=== PATIENT | female | born 1960 | race Caucasian/White ===

== ENCOUNTER 2019-03-02 17:19 | Emergency (ER) | payer BC ==
[~2019-03-02] VITALS: Ht 170.2 cm; Wt 59.9 kg
--- NOTE | 2019-03-02 17:48 | PHYS DOC ---
Past History Past Medical History: High Cholesterol, Hypothyroid (JENNA VALLEJO DO) Past Surgical History: Other Additional Past Surgical Histo: thyroid surgery (JENNA VALLEJO DO) Smoking: Non-smoker Alcohol Use: None Drug Use: None (JENNA VALLEJO DO) Adult General Chief Complaint Chief Complaint: DIZZY/LIGHT HEADED HPI HPI Patient is a 58-year-old female presents with dizziness that she describes as a lightheaded sensation. No rotational component. No worsening with head position nor change in body position. There has been some nausea without vomiting today. She also notes that there has been a rushing sensation in her left ear. This started after a yoga move 2 weeks ago. It has been waxing and waning over the past 2 weeks with symptoms being essentially gone yesterday, coming back worse again since 11:00 today. Over this same time frame she has been having a waxing and waiting headache also on the left side. No change in vision. No photophobia or phonophobia. She does get relief with ibuprofen. She has not seen any other health care provider for these symptoms at this time.[] (JENNA VALLEJO DO) Review of Systems Review of Systems Constitutional: Denies fever or chills [] Eyes: Denies change in visual acuity, redness, or eye pain [] HENT: Denies nasal congestion or sore throat [] Respiratory: Denies cough or shortness of breath [] Cardiovascular: No chest pain or palpitations[] GI: Denies abdominal pain, nausea, vomiting, bloody stools or diarrhea [] : Denies dysuria or hematuria [] Musculoskeletal: Denies back pain or joint pain [] Integument: Denies rash or skin lesions [] Neurologic: See history of present illness[] Endocrine: Denies polyuria or polydipsia [] All other systems were reviewed and found to be within normal limits, except as documented in this note. (JENNA VALLEJO DO) Allergies Allergies Allergies Coded Allergies Type Severity Reaction Last Updated Verified No Known Drug Allergies 03/02/19 No (JENNA VALLEJO DO) Physical Exam Physical Exam Constitutional: Well developed, well nourished, no acute distress, non-toxic appearance. [] HENT: Normocephalic, atraumatic, bilateral external ears normal, TMs are clear, no blood or fluid behind the TM, oropharynx moist, no oral exudates, nose normal. [] Eyes: PERRLA, EOMI, conjunctiva normal, no discharge. [] Neck: Normal range of motion, tenderness of the left cervical paraspinal musculature which re-creates some of her headache discomfort. No meningismus, no cervical lymphadenopathy, supple, no stridor. [] Cardiovascular:Heart rate regular rhythm, no murmur [] Lungs & Thorax: Bilateral breath sounds clear to auscultation [] Abdomen: Bowel sounds normal, soft, no tenderness, no masses, no pulsatile masses. [] Skin: Warm, dry, no erythema, no rash. [] Back: No tenderness, no CVA tenderness. [] Extremities: No tenderness, no cyanosis, no clubbing, ROM intact, no edema. [] Neurologic: Alert and oriented X 3, normal motor function, normal sensory function, no focal deficits noted. Normal rapid repetitive and alternating movements.[] Psychologic: Affect normal, judgement normal, mood normal. [] (JENNA VALLEJO DO) Physical Exam Some lateralization to Lt with BC 128, AC decreased on lt. . ( Hx Mnire's and decreased hearing in left ear- chronic) Distal vibratory present and relatively equal in hand s and feet. (NAIMA QUINTANILLA MD) EKG EKG [] (JENNA VALLEJO DO) EKG I interpretation of EKG shows a sinus rhythm at 63 bpm. There is some nonspecific contour abnormalities anterior septal areas. But no findings acute STEMI with contralateral changes. (NAIMA QUINTANILLA MD) Radiology/Procedures Radiology/Procedures [] (JENNA VALLEJO DO) Radiology/Procedures [address] [address] IMAGING REPORT Signed PATIENT: MARIAN VELÁSQUEZ ACCOUNT: [id number] : 1960 LOCATION: ER AGE: 58 SEX: F EXAM STATUS: REG ER ORD. PHYSICIAN: JENNA VALLEJO DO REASON: dizziness, headache PROCEDURE: CT HEAD WO CONTRAST PQRS Compliance statement: One or more of the following individualized dose reduction techniques were utilized for this examination: 1. Automated exposure control. 2. Adjustment of the mA and/or kV according to patient size. 3. Use of iterative reconstruction technique. Indication:Dizziness. Headache. TECHNIQUE: CT head without IV contrast COMPARISON: 04/15/2008 FINDINGS: No pathologic extra-axial or intra-axial fluid collection. Mild supratentorial atrophy. The ventricles and basal cisterns are within normal limits. No acute intracranial bleed. No focal loss of connor-white differentiation. Orbits are within normal limits. No suspicious calvarial lesion. Visualized paranasal sinuses and mastoid air cells are clear. IMPRESSION: No acute intracranial processes noncontrast CT. If concern for acute ischemic stroke is high, please consider MRI brain. Electronically signed by: Danny Grier DO (03/02/2019 6:03 PM) [facility] DICTATED AND SIGNED BY: DANNY GRIER DO DATE: 03/02/19 694 CC: JENNA VALLEJO DO; KEVIN IRAHETA MD ~ [place] [address] IMAGING REPORT Signed PATIENT: MARIAN VELÁSQUEZ ACCOUNT: [id number] : 1960 LOCATION: ER AGE: 58 SEX: F EXAM STATUS: REG ER ORD. PHYSICIAN: JENNA VALLEJO DO REASON: dizziness PROCEDURE: PORTABLE CHEST 1V Indication: Dizziness TECHNIQUE: Single AP view chest COMPARISON: None FINDINGS: Heart is normal in size. Lungs are hyperinflated with interstitial opacities. No pneumothorax or pleural effusion. Visualized bony thorax is within normal limits. IMPRESSION: COPD. Superimposed atypical/viral infection not ruled out. Electronically signed by: Danny Grier DO (03/02/2019 6:50 PM) [facility] DICTATED AND SIGNED BY: DANNY GRIER DO DATE: 03/02/19 952 CC: JENNA VALLEJO DO; NAIMA QUINTANILLA MD; KEVIN IRAHETA MD ~ (NAIMA QUINTANILLA MD) Course & Med Decision Making Course & Med Decision Making Pertinent Labs and Imaging studies reviewed. (See chart for details) ED course: Patient arrived, was placed in bed, and tolerated exam well. Patient care was endorsed to the nighttime physician at 1800 with laboratory and imaging studies as well as management of the symptoms in process.[] (JENNA VALLEJO DO) Course & Med Decision Making Pt. declines admission. Wants to go home and find her cat ' Vitaly' lost in the house... Pt. symptoms consistent with Lt. ear vestibular (Semicircular canal/otoliths issues). Exacerbation with rapid changes in position- supine to sitting, turning head ect. Gait issues. No drift, occupational rehabilitation aide equal, DTR + 2 pa tellar and brachial, distal vib. intact. . Hx prior Meniere's episodes. Pt. currently has stopped her calcium supplements, but taking magnesium supplements. Discussed risks and other etiologies with pt. CVA, TIA, Labyrinthitis, Neuronitis, dehydration, electrolytes ect. Consider Neurology consult. carotid US and MRI. Impression: 1. Dizzy- Vertigo- 2. Hypocalcemia 7.1 3. Hx. Meniere's 4. Hx. COPD- recently stopped tobacco (NAIMA QUINTANILLA MD) Dragon Disclaimer Dragon Disclaimer This electronic medical record was generated, in whole or in part, using a voice recognition dictation system. (JENNA VALLEJO DO) Departure Departure: Referrals: KEVIN IRAHETA MD (PCP) Scripts Prednisone (PREDNISONE) 50 Mg Tablet 50 MG PO DAILY for inflammation for 5 Days, #5 TAB Prov: NAIMA QUINTANILLA MD 03/02/19 Meclizine Hcl (MECLIZINE HCL) 25 Mg Tablet 25 MG PO QIDPRN PRN for dizzy, #30 TAB Prov: NAIMA QUINTANILLA MD 03/02/19 Discharge Summary Visit Information Final Diagnosis Problems Medical Problems: (1) Dizzy Status: Acute (2) Meniere syndrome Status: Acute (NAIMA QUINTANILLA MD) Brief Hospital Course Allergies Allergies Coded Allergies Type Severity Reaction Last Updated Verified No Known Drug Allergies 03/02/19 No Vital Signs Vital Signs Date Time Temp Pulse Resp B/P (MAP) Pulse Ox O2 Delivery O2 Flow Rate FiO2 03/02/19 19:51 67 20 135/80 (98) 97 Room Air 03/02/19 17:20 97.9 Lab Results Laboratory Tests Test 03/02/19 18:05 03/02/19 18:44 03/02/19 19:20 White Blood Count 8.1 x10^3/uL (4.0-11.0) Red Blood Count 4.28 x10^6/uL (3.50-5.40) Hemoglobin 13.2 g/dL (12.0-15.5) Hematocrit 39.8 % (36.0-47.0) Mean Corpuscular Volume 93 fL (79-100) Mean Corpuscular Hemoglobin 31 pg (25-35) Mean Corpuscular Hemoglobin Concent 33 g/dL (31-37) Red Cell Distribution Width 13.2 % (11.5-14.5) Platelet Count 294 x10^3/uL (140-400) Neutrophils (%) (Auto) 52 % (31-73) Lymphocytes (%) (Auto) 38 % (24-48) Monocytes (%) (Auto) 5 % (0-9) Eosinophils (%) (Auto) 4 % (0-3) Basophils (%) (Auto) 1 % (0-3) Neutrophils # (Auto) 4.2 x10^3uL (1.8-7.7) Lymphocytes # (Auto) 3.0 x10^3/uL (1.0-4.8) Monocytes # (Auto) 0.4 x10^3/uL (0.0-1.1) Eosinophils # (Auto) 0.3 x10^3/uL (0.0-0.7) Basophils # (Auto) 0.1 x10^3/uL (0.0-0.2) Troponin I Quantitative < 0.017 ng/mL (0-0.055) Prothrombin Time 10.2 SEC (9.4-11.4) Prothromb Time International Ratio 1.0 (0.9-1.1) Sodium Level 143 mmol/L (136-145) Potassium Level 3.6 mmol/L (3.5-5.1) Chloride Level 110 mmol/L (98-107) Carbon Dioxide Level 22 mmol/L (21-32) Anion Gap 11 (6-14) Blood Urea Nitrogen 15 mg/dL (7-20) Creatinine 0.6 mg/dL (0.6-1.0) Estimated GFR (Cockcroft-Gault) 102.3 BUN/Creatinine Ratio 25 (6-20) Glucose Level 117 mg/dL (70-99) Calcium Level 7.1 mg/dL (8.5-10.1) Total Bilirubin 0.5 mg/dL (0.2-1.0) Aspartate Amino Transf (AST/SGOT) 18 U/L (15-37) Alanine Aminotransferase (ALT/SGPT) 22 U/L (14-59) Alkaline Phosphatase 49 U/L (46-116) Total Protein 6.0 g/dL (6.4-8.2) Albumin 3.2 g/dL (3.4-5.0) Albumin/Globulin Ratio 1.1 (1.0-1.7) Magnesium Level 2.2 mg/dL (1.8-2.4) Brief Hospital Course Ms. Velásquez is a 58 old female who presented with complaints of vertigo. Declines admission. (NAIMA QUINTANILLA MD) Discharge Information Condition at Discharge: Stable Disposition/Orders: D/C to Home Dischare Medications Current Medications Sodium Chloride 1,000 ml @ 1,000 mls/hr 1X ONCE IV Last administered on 03/02/19at 18:12; Start 03/02/19 at 18:00; Stop 03/02/19 at 18:59; Status DC Metoclopramide HCl (Reglan Vial) 10 mg 1X ONCE IV Last administered on 03/02/19at 18:14; Start 03/02/19 at 18:00; Stop 03/02/19 at 18:01; Status DC Ketorolac Tromethamine (Toradol 15mg Vial) 15 mg 1X ONCE IV Last administered on 03/02/19at 18:15; Start 03/02/19 at 18:00; Stop 03/02/19 at 18:01; Status DC Prednisone (Prednisone) 50 mg 1X ONCE PO Last administered on 03/02/19at 21:08; Start 03/02/19 at 21:00; Stop 03/02/19 at 21:01; Status DC Active Scripts Active Prednisone 50 Mg Tablet 50 Mg PO DAILY 5 Days Meclizine Hcl 25 Mg Tablet 25 Mg PO QIDPRN PRN (NAIMA QUINTANILLA MD) Dragon Disclaimer This chart was dictated in whole or in part using Voice Recognition software in a busy, high-work load, and often noisy Emergency Department environment. It may contain unintended and wholly unrecognized errors or omissions. (NAIMA QUINTANILLA MD) JENNA VALLEJO DO Mar 02, 2019 17:48 NAIMA QUINTANILLA MD Mar 02, 2019 18:18
[2019-03-02] MEDS ORDERED: METOCLOPRAMIDE HCL 10 MG/2 ML VIAL. IV ONE (18:00)
[2019-03-02] MEDS ORDERED: IV NORMAL SALINE 1,000ML 1,000 ML IV ONE (18:00)
[2019-03-02] MEDS ORDERED: KETOROLAC 15 MG/ML VIAL. IV ONE (18:00)
--- NOTE | 2019-03-02 18:01 | EKG ---
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
--- NOTE | 2019-03-02 18:06 | RAD ---
PQRS Compliance statement: One or more of the following individualized dose reduction techniques were utilized for this examination: 1. Automated exposure control. 2. Adjustment of the mA and/or kV according to patient size. 3. Use of iterative reconstruction technique. Indication:Dizziness. Headache. TECHNIQUE: CT head without IV contrast COMPARISON: 04/15/2008 FINDINGS: No pathologic extra-axial or intra-axial fluid collection. Mild supratentorial atrophy. The ventricles and basal cisterns are within normal limits. No acute intracranial bleed. No focal loss of connor-white differentiation. Orbits are within normal limits. No suspicious calvarial lesion. Visualized paranasal sinuses and mastoid air cells are clear. IMPRESSION: No acute intracranial processes noncontrast CT. If concern for acute ischemic stroke is high, please consider MRI brain. Electronically signed by: Danny Grier DO (03/02/2019 6:03 PM) [facility]
[2019-03-02 18:36] LABS: BASO # 0.1 x10^3/uL (0.0-0.2); BASO % 1 % (0-3); EOS # 0.3 x10^3/uL (0.0-0.7); EOS % 4 % (0-3); HEMATOCRIT 39.8 % (36.0-47.0); HEMOGLOBIN 13.2 g/dL (12.0-15.5); LYMPH % 38 % (24-48); MEAN CORPUSCULAR HEMOGLOBIN 31 pg (25-35); MEAN CORPUSCULAR HGB CONC 33 g/dL (31-37); MEAN CORPUSCULAR VOLUME 93 fL (79-100); MONO # 0.4 x10^3/uL (0.0-1.1); MONO % 5 % (0-9); NEUT # 4.2 x10^3uL (1.8-7.7); NEUT % 52 % (31-73); PLATELET COUNT 294 x10^3/uL (140-400); RED BLOOD COUNT 4.28 x10^6/uL (3.50-5.40); RED CELL DISTRIBUTION WIDTH 13.2 % (11.5-14.5); WHITE BLOOD COUNT 8.1 x10^3/uL (4.0-11.0)
--- NOTE | 2019-03-02 18:53 | RAD ---
Indication: Dizziness TECHNIQUE: Single AP view chest COMPARISON: None FINDINGS: Heart is normal in size. Lungs are hyperinflated with interstitial opacities. No pneumothorax or pleural effusion. Visualized bony thorax is within normal limits. IMPRESSION: COPD. Superimposed atypical/viral infection not ruled out. Electronically signed by: Danny Grier DO (03/02/2019 6:50 PM) [facility]
[2019-03-02 19:20] LABS: ALBUMIN 3.2 g/dL (3.4-5.0); ALBUMIN/GLOBULIN RATIO 1.1 (1.0-1.7); CALCIUM 7.1 mg/dL (8.5-10.1); CREATININE 0.6 mg/dL (0.6-1.0); GFR 102.3; POTASSIUM 3.6 mmol/L (3.5-5.1); TOTAL BILIRUBIN 0.5 mg/dL (0.2-1.0)
[2019-03-02 19:51] VITALS: BP 135/80
[2019-03-02] MEDS ORDERED: MECL25TA3 PO (20:43)
[2019-03-02] MEDS ORDERED: PRED50TA PO (20:45)
[2019-03-02] MEDS ORDERED: predniSONE 10 MG TABLET PO ONE (21:00)
== END 2019-03-02 21:19 | disposition home or self-care (01) ==
LOC: ER 17:19
DX: R42 Dizziness and giddiness (principal); E83.51 Hypocalcemia; R51 Headache; H81.02 Meniere's disease, left ear; J44.9 Chronic obstructive pulmonary disease, unspecified; E78.00 Pure hypercholesterolemia, unspecified; E03.9 Hypothyroidism, unspecified; Z87.891 Personal history of nicotine dependence
CPT/HCPCS: 36415; 70450; 71045; 80053; 83735; 84484; 85025; 85610; 93005; 96361; 96374; 96375; 99285; J1885; J2765; J7512; J7030

== ENCOUNTER 2020-01-31 16:38 | Emergency (ER) | payer BC ==
[~2020-01-31] VITALS: Ht 170.2 cm; Wt 62.3 kg
[~2020-01-31 16:38] MED LIST: MECL-75 PO; PRED50TA PO
[2020-01-31] MEDS ORDERED: ONDANSETRON PF 4 MG/2 ML VIAL. IVP ONE (17:15)
[2020-01-31] MEDS ORDERED: diphenhydrAMINE 50 MG/ML VIAL IVP ONE (17:15)
[2020-01-31] MEDS ORDERED: IV NORMAL SALINE 1,000ML 1,000 ML IV ONE (17:15)
[2020-01-31] MEDS ORDERED: MECLIZINE 12.5 MG TABLET. PO PRN (17:15)
--- NOTE | 2020-01-31 17:21 | PHYS DOC ---
Past History Past Medical History: High Cholesterol, Hypothyroid (MILES LUNA DO) Past Medical History: UTI (NAIMA DUFF MD) Past Surgical History: Other Additional Past Surgical Histo: thyroid surgery (MILES LUNA DO) Smoking: Non-smoker Alcohol Use: None Drug Use: None (MILES LUNA DO) General Adult EDM: Chief Complaint: NAUSEA/VOMITING/DIARRHEA HPI: HPI: 59-year-old female presents with dizziness and nausea. Patient has Mnire's disease. She has been feeling dizzy and nauseous all day. She does not regularly take medication for this. She admits to some seasonal allergies and frequent congestion. She further complains about right tibia pain. She denies trauma, but it has been hurting more the last 2 days. She has a history of osteoporosis and is concerned. She denies fever or chills. (MILES LUNA DO) Review of Systems: Review of Systems: Constitutional: Denies fever or chills Eyes: Denies change in visual acuity HENT: Denies nasal congestion or sore throat Respiratory: Denies cough or shortness of breath Cardiovascular: Denies chest pain or edema GI: nausea, vomiting : Denies dysuria Musculoskeletal: Right anterior tibial pain Integument: Denies rash Neurologic: Dizziness. Denies headache, focal weakness or sensory changes Endocrine: Denies polyuria or polydipsia Lymphatic: Denies swollen glands Psychiatric: Denies depression or anxiety (MILES LUNA DO) Heart Score: Risk Factors: Risk Factors: DM, Current or recent (<one month) smoker, HTN, HLP, family history of CAD, obesity. Risk Scores: Score 0 - 3: 2.5% MACE over next 6 weeks - Discharge Home Score 4 - 6: 20.3% MACE over next 6 weeks - Admit for Clinical Observation Score 7 - 10: 72.7% MACE over next 6 weeks - Early Invasive Strategies (MILES LUNA DO) Current Medications: Current Meds: Current Medications Medications (Trade) Dose Ordered Sig/Marta Start Time Stop Time Status Last Admin Dose Admin Diphenhydramine HCl (Benadryl) 25 mg 1X ONCE 01/31/20 17:15 01/31/20 17:16 UNV Meclizine HCl (Antivert) 12.5 mg 1X PRN 01/31/20 17:15 UNV Ondansetron HCl (Zofran) 4 mg 1X ONCE 01/31/20 17:15 01/31/20 17:16 DC Sodium Chloride 1,000 ml @ 1,000 mls/hr 1X ONCE 01/31/20 17:15 01/31/20 18:14 (MILES LUNA DO) Allergies: Allergies: Allergies Coded Allergies Type Severity Reaction Last Updated Verified No Known Drug Allergies 03/02/19 No (MILES LUNA DO) Physical Exam: PE: Constitutional: Well developed, well nourished, no acute distress, non-toxic appearance. [] HENT: Normocephalic, atraumatic, bilateral external ears normal, oropharynx moist, no oral exudates, nose normal. [] Eyes: PERRLA, EOMI, conjunctiva normal, no discharge. [] Neck: Normal range of motion, no tenderness, supple, no stridor. [] Cardiovascular: Heart rate regular rhythm, no murmur [] Lungs & Thorax: Bilateral breath sounds clear to auscultation [] Abdomen: Bowel sounds normal, soft, no tenderness, no masses, no pulsatile masses. [] Skin: Warm, dry, no erythema, no rash. [] Back: No tenderness, no CVA tenderness. [] Extremities: Tenderness of the right distal tibia [] Neurologic: Alert and oriented X 3, normal motor function, normal sensory function, no focal deficits noted. [] Psychologic: Affect normal, judgement normal, mood normal. [] (MILES LUNA DO) EKG: EKG: [] (MILES LUNA DO) Radiology/Procedures: Radiology/Procedures: [] (MILES LUNA DO) Radiology/Procedures: [address] [address] IMAGING REPORT Signed PATIENT: MARIAN REYES ACCOUNT: [id number] : 1960 LOCATION: ER AGE: 59 SEX: F EXAM STATUS: REG ER ORD. PHYSICIAN: MILES LUNA DO REASON: pain, osteoporosis PROCEDURE: TIBIA FIBULA RIGHT EXAM: Right tibia and fibula, 2 views. HISTORY: Pain. Osteoporosis. COMPARISON: None. FINDINGS: 2 views of the right tibia and fibula are obtained. There is no fracture, dislocation or subluxation. There is no lytic or sclerotic osseous lesion. There is no periosteal reaction. There is enthesopathy along the superior patella. There is trace knee joint fluid. There are vascular and soft tissue calcifications. IMPRESSION: No acute osseous finding. Electronically signed by: Acacia Ruth MD (01/31/2020 5:52 PM) [facility] DICTATED AND SIGNED BY: ACACIA RUTH MD DATE: 01/31/201751 CC: MILES LUNA DO; ACACIA BARRAZA MD ~ (NAIMA DUFF MD) Course & Med Decision Making: Course & Med Decision Making Pertinent Labs and Imaging studies reviewed. (See chart for details) The patient's work-up is pending. I have ordered 1 L normal saline, 4 mg of Zofran, 12-1/2 mg of meclizine. I am signing the patient out to Dr. Duff at 1800. [] (MILES LUNA DO) Course & Med Decision Making See Dr. Luna chart for details. Pt.requesting discharge. Pt. to follow up urine cultures. Take Levaquin 500 daily x 5 days. Return if any concerns. Impression; 1. Nausea 2. UTI (NAIMA DUFF MD) Dragon Disclaimer: Dragon Disclaimer: This electronic medical record was generated, in whole or in part, using a voice recognition dictation system. (MILES LUNA DO) Departure Departure: Disposition: 01 HOME/RESIDENCE PRIOR TO ADM Condition: STABLE Referrals: ACACIA BARRAZA MD (PCP) Scripts Levofloxacin (LEVAQUIN) 500 Mg Tablet 500 MG PO DAILY for UTI for 5 Days, #5 TAB Prov: NAIMA DUFF MD 01/31/20 Ondansetron Hcl (ZOFRAN) 8 Mg Tablet 8 MG PO QIDPRN PRN for nv, #30 BOTTLE Prov: NAIMA DUFF MD 01/31/20 Justification of Admission: Justification of Admission: Justification of Admission Dx: N/A (MILES LUNA DO) Justification of Admission Dx: N/A (NAIMA DUFF MD) Dragon Disclaimer This chart was dictated in whole or in part using Voice Recognition software in a busy, high-work load, and often noisy Emergency Department environment. It may contain unintended and wholly unrecognized errors or omissions. (NAIMA DUFF MD) Dragon Disclaimer This chart was dictated in whole or in part using Voice Recognition software in a busy, high-work load, and often noisy Emergency Department environment. It may contain unintended and wholly unrecognized errors or omissions. (NAIMA DUFF MD) IMLES LUNA DO Jan 31, 2020 17:21 NAIMA DUFF MD Jan 31, 2020 18:16
--- NOTE | 2020-01-31 17:55 | RAD ---
EXAM: Right tibia and fibula, 2 views. HISTORY: Pain. Osteoporosis. COMPARISON: None. FINDINGS: 2 views of the right tibia and fibula are obtained. There is no fracture, dislocation or subluxation. There is no lytic or sclerotic osseous lesion. There is no periosteal reaction. There is enthesopathy along the superior patella. There is trace knee joint fluid. There are vascular and soft tissue calcifications. IMPRESSION: No acute osseous finding. Electronically signed by: Acacia Lama MD (01/31/2020 5:52 PM) [facility]
[2020-01-31 18:07] LABS: BASO # 0.1 x10^3/uL (0.0-0.2); BASO % 1 % (0-3); EOS % 0 % (0-3); HEMOGLOBIN 12.5 g/dL (12.0-15.5); LYMPH # 1.7 x10^3/uL (1.0-4.8); LYMPH % 21 % (24-48); MEAN CORPUSCULAR HEMOGLOBIN 30 pg (25-35); MEAN CORPUSCULAR HGB CONC 34 g/dL (31-37); MEAN CORPUSCULAR VOLUME 90 fL (79-100); MONO # 0.3 x10^3/uL (0.0-1.1); MONO % 3 % (0-9); NEUT # 5.8 x10^3uL (1.8-7.7); NEUT % 74 % (31-73); PLATELET COUNT 322 x10^3/uL (140-400); RED CELL DISTRIBUTION WIDTH 13.3 % (11.5-14.5); WHITE BLOOD COUNT 7.8 x10^3/uL (4.0-11.0)
[2020-01-31 18:21] LABS: CALCIUM 7.6 mg/dL (8.5-10.1); CREATININE 0.9 mg/dL (0.6-1.0); GFR 63.9; POTASSIUM 3.6 mmol/L (3.5-5.1)
[2020-01-31 18:25] LABS: ALBUMIN 3.7 g/dL (3.4-5.0); ALBUMIN/GLOBULIN RATIO 1.1 (1.0-1.7); TOTAL BILIRUBIN 0.8 mg/dL (0.2-1.0)
[2020-01-31 19:38] LABS: BACTERIA,URINE MANY /HPF (0-FEW); BILIRUBIN,URINE NEG (NEG); CLARITY,URINE CLOUDY; COLOR,URINE YELLOW; GLUCOSE,URINE NEG (NEG); NITRITE,URINE POS (NEG); RBC,URINE OCC /HPF (0-2); SQUAMOUS EPITHELIAL CELL,UR FEW /LPF; UROBILINOGEN,URINE 0.2 mg/dL (0.2 mg/dL); WBC,URINE >40 /HPF (0-4)
[2020-01-31] MEDS ORDERED: MORPHINE SULFATE 10 MG/ML SYRINGE. ONE (20:12)
[2020-01-31 20:27] VITALS: BP 125/72
[2020-01-31] MEDS ORDERED: LEVO500T59 PO (21:41)
[2020-01-31] MEDS ORDERED: ONDA8TAB9 PO (21:41)
[2020-01-31] MEDS ORDERED: levoFLOXacin 500 MG TABLET PO ONE (22:00)
== END 2020-01-31 22:00 | disposition home or self-care (01) ==
LOC: ER 16:38
DX: N39.0 Urinary tract infection, site not specified (principal); R11.2 Nausea with vomiting, unspecified; E78.00 Pure hypercholesterolemia, unspecified; M79.604 Pain in right leg; E03.9 Hypothyroidism, unspecified; Z87.440 Personal history of urinary (tract) infections
CPT/HCPCS: 36415; 73590; 80053; 81001; 85025; 87086; 96374; 96375; 99284; J1200; J2405; J8597

== ENCOUNTER → 2020-03-10 | Outpatient (CLI) | payer BC ==
[~2020-03-10] MED LIST changes: +ASCO500C9 PO; +ASPI81TA59 PO; +ATORVASTATIN CA80 MG PO; +CALC500T30 PO; +LEVO100T82 PO; +LEVO500T59 PO; +MULT-245 PO; +ONDA8TAB9 PO; +TIOT4MIS3 IH
== END | disposition home or self-care (01) ==
LOC: LAB 13:28
PROVIDERS: ATTEND Nurse Anesthetist, Certified Registered
DX: Z01.818 Encounter for other preprocedural examination (principal); Z11.59 Encounter for screening for other viral diseases
CPT/HCPCS: C9803; U0003; 36415

== ENCOUNTER → 2020-03-13 | Day surgery (SDC) | payer BC ==
[~2020-03-13] MED LIST changes: +IPRATRPIUM/ALBUTEROL 0.5/2.5MG 3 ML NEBU. NEB PRN; +IV RINGERS SOLUTION,LACTATED 1,000 ML IV SCH; +MIDAZOLAM HCL PF 2 MG/2 ML VIAL. IV ONE; +PROPOFOL 10,000 MCG/ML (20ML) VIAL IV ONE
[2020-03-13 13:03] VITALS: BP 112/75
--- NOTE | 2020-03-17 17:07 | PATHOLOGY ---
[facility] Accession Number: [id number] . 01 Material submitted: . stomach - BIOPSY ANTRUM - GASTRITIS . 01 Clinical history: . Family history of cancer; abdominal pain; GERD; history of polyps . 02 Diagnosis: Gastric biopsies, antrum: - Chronic gastritis, mild. . (M:mm; 03/17/2020) [facility] 03/17/2020 1405 Local . 02 Comment: Sections of the gastric biopsy reveal segments of gastric antral and antral/body transition mucosa showing congestion and mild chronic inflammation with scattered admixed small numbers of eosinophils. A properly-controlled immunoperoxidase stain for Helicobacter is negative for Helicobacter organisms. . Special stain (A1): Immunoperoxidase stain for Helicobacter pylori . (JPM:mm; 03/17/2020) . 02 Electronically signed: . Wagner Moon MD, Pathologist NPI- [id number] . 01 Gross description: . The specimen is received in formalin, labeled "Ada Brown, biopsy antrum gastritis". Received are two segments of pale payne soft tissue ranging in size from 0.4 to 0.5 cm in maximum dimensions. The specimen is submitted entirely in cassette A1. (CAA; 03/16/2020) [facility] 03/16/2020 1652 Local . 02 Pathologist provided ICD-10: K29.50 . 02 CPT . 129895, [id number] Specimen Comment: A courtesy copy of this report has been sent to [phone], [phone] Specimen Comment: [phone] Specimen Comment: Report sent to / DR BARRAZA Performed at: [address], [place], [place] [id number] MD Mele Nash MD Phone: [phone] Performed at: [address] [id number] MD Wagner Moon MD Phone: [phone]
== END | disposition home or self-care (01) ==
LOC: SURG 10:28
PROVIDERS: ATTEND Internal Medicine Gastroenterology
DX: Z12.11 Encounter for screening for malignant neoplasm of colon (principal); K64.0 First degree hemorrhoids; K57.30 Diverticulosis of large intestine without perforation or abscess without bleeding; K21.0 Gastro-esophageal reflux disease with esophagitis; K44.9 Diaphragmatic hernia without obstruction or gangrene; K29.50 Unspecified chronic gastritis without bleeding; M19.90 Unspecified osteoarthritis, unspecified site; E78.00 Pure hypercholesterolemia, unspecified; J44.9 Chronic obstructive pulmonary disease, unspecified; E03.9 Hypothyroidism, unspecified; G62.9 Polyneuropathy, unspecified; Z79.82 Long term (current) use of aspirin; Z79.899 Other long term (current) drug therapy; Z87.440 Personal history of urinary (tract) infections; Z90.710 Acquired absence of both cervix and uterus; Z90.49 Acquired absence of other specified parts of digestive tract; Z86.010 Personal history of colon polyps
CPT/HCPCS: 43239; 45378; 88305; 88342; J2704; J7120

== ENCOUNTER 2020-06-05 12:46 | Emergency (ER) | payer BC ==
[~2020-06-05] VITALS: Ht 170.2 cm; Wt 63.7 kg
[~2020-06-05 12:46] MED LIST changes: -IPRATRPIUM/ALBUTEROL 0.5/2.5MG 3 ML NEBU. NEB PRN; -IV RINGERS SOLUTION,LACTATED 1,000 ML IV SCH; -MIDAZOLAM HCL PF 2 MG/2 ML VIAL. IV ONE; -PROPOFOL 10,000 MCG/ML (20ML) VIAL IV ONE
[2020-06-05] MEDS ORDERED: ASPIRIN CHEWABLE 81 MG TABLET. PO ONE (13:15)
--- NOTE | 2020-06-05 13:44 | EKG ---
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
--- NOTE | 2020-06-05 13:45 | RAD ---
PORTABLE CHEST 1V History: Chest pain Comparison: March 02, 2019 Findings: Single view of the chest is submitted. There is emphysema. Heart size is stable, within normal limits. There is some atherosclerotic calcification near the aortic arch. There is no lobar infiltrate, dependent pleural fluid, or pneumothorax. Impression: 1. No acute radiographic abnormality is identified. There is emphysema. Electronically signed by: Senthil Gan MD (06/05/2020 1:42 PM) [facility]
--- NOTE | 2020-06-05 13:49 | PHYS DOC ---
Past History Past Medical History: Hypothyroid, UTI Past Surgical History: Cholecystectomy Additional Past Surgical Histo: thyroidectomy Smoking: Non-smoker Alcohol Use: None Drug Use: None Adult General Chief Complaint Chief Complaint: CHEST PAIN HPI HPI Patient is a 59-year-old female who presents from PCPs office for chest pain. Patient reports approximately 1 week of nonspecific substernal/mid scapular pain that radiates into right upper extremity. Nothing known makes better or worse. She has never felt any pain like this before. Pain is described as dull pressure and is unfazed by activity. Patient has history of smoking but other cardiovascular risk factors. She has had recent echocardiogram and SPECT examinations in 2017 that were grossly unremarkable. She is not not on any c ardioprotective medication such as statins but does take a baby aspirin daily Review of Systems Review of Systems Fourteen body systems of review of systems have been reviewed. See HPI for pertinent positives and negative responses, other blanco all other systems are negative, non-pertinent or non-contributory Current Medications Current Medications Current Medications Medications (Trade) Dose Ordered Sig/Marta Start Time Stop Time Status Last Admin Dose Admin Aspirin (Aspirin Chewable) 162 mg 1X ONCE 06/05/20 13:15 06/05/20 13:16 DC 06/05/20 13:44 162 MG Allergies Allergies Allergies Coded Allergies Type Severity Reaction Last Updated Verified sulfamethoxazole Allergy Unknown 06/05/20 Yes trimethoprim Allergy Unknown 06/05/20 Yes Physical Exam Physical Exam Constitutional: Well developed, well nourished, no acute distress, non-toxic appearance. HENT: Normocephalic, atraumatic, bilateral external ears normal, oropharynx moist, no oral exudates, nose normal. Eyes: PERRLA, EOMI, conjunctiva normal, no discharge. Neck: Normal range of motion, no tenderness, supple, no stridor. Cardiovascular: Heart rate regular, sinus rhythm, no murmurs rubs or gallops, chest wall nontender on palpation Lungs & Thorax: Bilateral breath sounds clear to auscultation Abdomen: Bowel sounds normal, soft, no tenderness, no masses, no pulsatile masses. Nonsurgical abdomen, no peritoneal signs Skin: Warm, dry, no erythema, no rash. Back: No tenderness, no CVA tenderness. Extremities: No tenderness, no cyanosis, no clubbing, ROM intact, no edema. Neurologic: Alert and oriented X 3, grossly normal motor & sensory function, no focal deficits noted. Psychologic: Affect normal, judgement normal, mood normal. Current Patient Data Vital Signs Vital Signs Date Time Temp Pulse Resp B/P (MAP) Pulse Ox O2 Delivery O2 Flow Rate FiO2 06/05/20 12:56 97.8 68 20 135/80 (98) 95 Room Air Lab Results Laboratory Tests Test 06/05/20 13:35 White Blood Count 8.0 x10^3/uL (4.0-11.0) Red Blood Count 4.61 x10^6/uL (3.50-5.40) Hemoglobin 14.2 g/dL (12.0-15.5) Hematocrit 42.5 % (36.0-47.0) Mean Corpuscular Volume 92 fL (79-100) Mean Corpuscular Hemoglobin 31 pg (25-35) Mean Corpuscular Hemoglobin Concent 33 g/dL (31-37) Red Cell Distribution Width 13.4 % (11.5-14.5) Platelet Count 271 x10^3/uL (140-400) Neutrophils (%) (Auto) 55 % (31-73) Lymphocytes (%) (Auto) 38 % (24-48) Monocytes (%) (Auto) 6 % (0-9) Eosinophils (%) (Auto) 1 % (0-3) Basophils (%) (Auto) 1 % (0-3) Neutrophils # (Auto) 4.3 x10^3uL (1.8-7.7) Lymphocytes # (Auto) 3.1 x10^3/uL (1.0-4.8) Monocytes # (Auto) 0.5 x10^3/uL (0.0-1.1) Eosinophils # (Auto) 0.1 x10^3/uL (0.0-0.7) Basophils # (Auto) 0.1 x10^3/uL (0.0-0.2) Sodium Level 139 mmol/L (136-145) Potassium Level 3.6 mmol/L (3.5-5.1) Chloride Level 103 mmol/L (98-107) Carbon Dioxide Level 26 mmol/L (21-32) Anion Gap 10 (6-14) Blood Urea Nitrogen 12 mg/dL (7-20) Creatinine 0.7 mg/dL (0.6-1.0) Estimated GFR (Cockcroft-Gault) 85.4 BUN/Creatinine Ratio 17 (6-20) Glucose Level 98 mg/dL (70-99) Calcium Level 8.8 mg/dL (8.5-10.1) Total Bilirubin 1.4 mg/dL (0.2-1.0) Aspartate Amino Transf (AST/SGOT) 25 U/L (15-37) Alanine Aminotransferase (ALT/SGPT) 29 U/L (14-59) Alkaline Phosphatase 56 U/L (46-116) Troponin I Quantitative < 0.017 ng/mL (0-0.055) MA-Sqo-Q-Type Natriuretic Peptide 74 pg/mL (0-124) Total Protein 8.1 g/dL (6.4-8.2) Albumin 4.5 g/dL (3.4-5.0) Albumin/Globulin Ratio 1.3 (1.0-1.7) Lipase 373 U/L (73-393) EKG EKG EKG ordered and interpreted by myself at 1345 hrs. as sinus rhythm at 62 bpm, unremarkable intervals, no axis deviation, no acute ischemic findings, no STEMI. When compared to EKG performed approximately 1 hour prior at primary care's office, there is new T wave inversions in V1 and deflection differences in leads V2 and V3 but this is likely placement related, no other concerning findings noted on comparison Radiology/Procedures Radiology/Procedures PROCEDURE: PORTABLE CHEST 1V PORTABLE CHEST 1V History: Chest pain Comparison: March 02, 2019 Findings: Single view of the chest is submitted. There is emphysema. Heart size is stable, within normal limits. There is some atherosclerotic calcification near the aortic arch. There is no lobar infiltrate, dependent pleural fluid, or pneumothorax. Impression: 1. No acute radiographic abnormality is identified. There is emphysema. Electronically signed by: Senthil Gan MD (06/05/2020 1:42 PM) [facility] Heart Score HEART Score for Chest Pain: HEART Score for Chest Pain Response (Comments) Value History Slighlty/Non-Suspicious 0 ECG Nonspecific Repolarizatio 1 Age >45 - < 65 1 Risk Factors 1 or 2 Risk Factors 1 Troponin < Normal Limit 0 Total 3 Risk Factors: Risk Factors: DM, Current or recent (<one month) smoker, HTN, HLP, family history of CAD, obesity. Risk Scores: Risk Factors: DM, Current or recent (<one month) smoker, HTN, HLP, family history of CAD, obesity. Course & Med Decision Making Course & Med Decision Making Ambulatory well-appearing patient seen on arrival ABCs nonconcerning Comprehensive history and physical exam obtained, subsequent diagnostic work-up that was grossly negative reviewed I reviewed outside records which were pertinent for SPECT study performed 01/28/2017 showed ejection fraction of 60%, nonischemic study without any regions of myocardial infarction, normal ventricular function with 9.4 METs of activity achieved. Echocardiogram performed on 02/05/2016 showed ejection fraction of 60% without any obvious abnormalities Discussed patient's heart score and other risk factors. At this time, joint decision for discharge home with close PCP follow-up. I discussed this with patient in addition to PCP and all in agreement for close outpatient follow-up Strict return precautions were discussed with good understanding by patient, all questions and concerns addressed prior to ER departure in stable condition Dragon Disclaimer Dragon Disclaimer This electronic medical record was generated, in whole or in part, using a voice recognition dictation system. Departure Departure: Impression: Primary Impression: Chest pain, unspecified Disposition: 01 DC HOME SELF CARE/HOMELESS Condition: STABLE Referrals: AMY BARRAZA MD (PCP) Patient Instructions: Chest Pain (Nonspecific) Additional Instructions: As discussed prior to ER departure, please call your primary care physician first thing after discharge to schedule outpatient follow-up in upcoming 3 to 14 days As discussed, I have low concern for chest pain of cardiac origin at this time I did disclose this might be an early presentation of more concerning pathology and so, close follow-up is advised If any concerning signs or symptoms present themselves prior to outpatient follow-up please do not hesitate to come back for repeat evaluation It was a pleasure to take care of you and I wish you a speedy recovery! LEVAR HARDY DO Jun 05, 2020 13:49
[2020-06-05 14:05] LABS: BASO # 0.1 x10^3/uL (0.0-0.2); BASO % 1 % (0-3); EOS # 0.1 x10^3/uL (0.0-0.7); EOS % 1 % (0-3); HEMATOCRIT 42.5 % (36.0-47.0); HEMOGLOBIN 14.2 g/dL (12.0-15.5); LYMPH # 3.1 x10^3/uL (1.0-4.8); LYMPH % 38 % (24-48); MEAN CORPUSCULAR HEMOGLOBIN 31 pg (25-35); MEAN CORPUSCULAR HGB CONC 33 g/dL (31-37); MEAN CORPUSCULAR VOLUME 92 fL (79-100); MONO # 0.5 x10^3/uL (0.0-1.1); MONO % 6 % (0-9); NEUT # 4.3 x10^3uL (1.8-7.7); NEUT % 55 % (31-73); PLATELET COUNT 271 x10^3/uL (140-400); RED BLOOD COUNT 4.61 x10^6/uL (3.50-5.40); RED CELL DISTRIBUTION WIDTH 13.4 % (11.5-14.5)
[2020-06-05 14:12] LABS: CALCIUM 8.8 mg/dL (8.5-10.1); CREATININE 0.7 mg/dL (0.6-1.0); GFR 85.4; POTASSIUM 3.6 mmol/L (3.5-5.1)
[2020-06-05 14:24] LABS: ALBUMIN 4.5 g/dL (3.4-5.0); ALBUMIN/GLOBULIN RATIO 1.3 (1.0-1.7); TOTAL BILIRUBIN 1.4 mg/dL (0.2-1.0); TOTAL PROTEIN 8.1 g/dL (6.4-8.2)
[2020-06-05 14:48] VITALS: BP 108/76
== END 2020-06-05 14:52 | disposition home or self-care (01) ==
LOC: ER 12:46
DX: R07.89 Other chest pain (principal); E03.9 Hypothyroidism, unspecified; Z90.49 Acquired absence of other specified parts of digestive tract; Z90.89 Acquired absence of other organs; Z88.2 Allergy status to sulfonamides; Z88.8 Allergy status to other drugs, medicaments and biological substances
CPT/HCPCS: 36415; 71045; 80053; 83690; 83880; 84484; 85025; 93005; 99285

== ENCOUNTER 2021-08-01 09:07 | Emergency (ER) | payer BC ==
[~2021-08-01] VITALS: Ht 170.2 cm; Wt 64.3 kg
[2021-08-01 09:07] VITALS: BP 110/72
--- NOTE | 2021-08-01 09:44 | PHYS DOC ---
Past History Past Medical History: Hypothyroid, UTI Past Surgical History: Cholecystectomy Additional Past Surgical Histo: thyroidectomy Smoking: Non-smoker Alcohol Use: None Drug Use: None General Adult EDM: Chief Complaint: CONGESTION HPI: HPI: 61-year-old female presents with congestion, mild shortness of breath, body aches for the last 4 days. She started feeling this way Monday. The patient is vaccinated against COVID-19. She decided come in today because she checked her oxygen level when she woke up this morning and it was 91%. In the ER it is 95%. Patient also states having fevers that spike in the afternoon up to 102. She stated having a fever this morning when she woke up but her temperature is normal on arrival. Patient does have a history of COPD. She has not had much of a cough. Review of Systems: Review of Systems: Constitutional: Fever, body aches, fatigue. Eyes: Denies change in visual acuity HENT: Nasal congestion Respiratory: Mild shortness of breath Cardiovascular: Denies chest pain or edema GI: Denies abdominal pain, nausea, vomiting, bloody stools or diarrhea : Denies dysuria Musculoskeletal: Denies back pain or joint pain Integument: Denies rash Neurologic: Denies headache, focal weakness or sensory changes Endocrine: Denies polyuria or polydipsia Lymphatic: Denies swollen glands Psychiatric: Denies depression or anxiety Allergies: Allergies: Allergies Coded Allergies Type Severity Reaction Last Updated Verified sulfamethoxazole Allergy Unknown 06/05/20 Yes trimethoprim Allergy Unknown 06/05/20 Yes Physical Exam: PE: Constitutional: Well developed, well nourished, no acute distress, non-toxic appearance. [] HENT: Normocephalic, atraumatic, bilateral external ears normal, oropharynx moist, no oral exudates, nose normal. [] Eyes: PERRLA, EOMI, conjunctiva normal, no discharge. [] Neck: Normal range of motion, no tenderness, supple, no stridor. [] Cardiovascular: Heart rate regular rhythm, no murmur [] Lungs & Thorax: Bilateral breath sounds clear to auscultation [] Abdomen: Bowel sounds normal, soft, no tenderness, no masses, no pulsatile masses. [] Skin: Warm, dry, no erythema, no rash. [] Back: No tenderness, no CVA tenderness. [] Extremities: No tenderness, no cyanosis, no clubbing, ROM intact, no edema. [] Neurologic: Alert and oriented X 3, normal motor function, normal sensory function, no focal deficits noted. [] Psychologic: Affect normal, judgement normal, mood normal. [] EKG: EKG: [] Radiology/Procedures: Radiology/Procedures: [] Impressions: EXAM: Chest, single view. HISTORY: Cough. COMPARISON: 03/02/2019 FINDINGS: A frontal view of the chest is obtained. There is no infiltrate, pleural effusion or pneumothorax. The heart is normal in size. There is hyperinflation likely due to emphysema. IMPRESSION: No acute pulmonary finding. Electronically signed by: Acacia Lama MD (08/01/2021 10:06 AM) [facility] DICTATED AND SIGNED BY: ACACIA LAMA MD DATE: 08/01/21 1005 CC: MILES LUNA DO; ACACIA BARRAZA MD ~MTH0 0 Heart Score: C/O Chest Pain: No Risk Factors: Risk Factors: DM, Current or recent (<one month) smoker, HTN, HLP, family history of CAD, obesity. Risk Scores: Score 0 - 3: 2.5% MACE over next 6 weeks - Discharge Home Score 4 - 6: 20.3% MACE over next 6 weeks - Admit for Clinical Observation Score 7 - 10: 72.7% MACE over next 6 weeks - Early Invasive Strategies Course & Med Decision Making: Course & Med Decision Making Pertinent Labs and Imaging studies reviewed. (See chart for details) The patient's chest x-ray is negative for acute findings. The patient's influenza is negative. This could be COVID-19 or another viral illness. I have advised quarantine and supportive care such as rest, hydration, Tylenol and ibuprofen as needed. She is stable for discharge at this time. [] Dragon Disclaimer: Dragon Disclaimer: This electronic medical record was generated, in whole or in part, using a voice recognition dictation system. Departure Departure: Impression: Primary Impression: Viral upper respiratory infection Disposition: HOME / SELF CARE / HOMELESS Condition: STABLE Referrals: ACACIA BARRAZA MD (PCP) Patient Instructions: Upper Respiratory Infection, Adult, [id number] MILES LUNA DO Aug 01, 2021 09:44
--- NOTE | 2021-08-01 10:08 | RAD ---
EXAM: Chest, single view. HISTORY: Cough. COMPARISON: 03/02/2019 FINDINGS: A frontal view of the chest is obtained. There is no infiltrate, pleural effusion or pneumo thorax. The heart is normal in size. There is hyperinflation likely due to emphysema. IMPRESSION: No acute pulmonary finding. Electronically signed by: Acacia Lama MD (08/01/2021 10:06 AM) [facility]
[2021-08-01 10:11] LABS: INFLUENZA A PATIENT NEGATIVE (NEGATIVE); INFLUENZA B PATIENT NEGATIVE (NEGATIVE)
== END 2021-08-01 10:38 | disposition home or self-care (01) ==
LOC: ER 09:07
DX: J06.9 Acute upper respiratory infection, unspecified (principal); E03.9 Hypothyroidism, unspecified; Z20.822 Contact with and (suspected) exposure to COVID-19; Z87.440 Personal history of urinary (tract) infections; Z90.49 Acquired absence of other specified parts of digestive tract; Z88.2 Allergy status to sulfonamides; Z88.1 Allergy status to other antibiotic agents
CPT/HCPCS: 71045; 87804; 99284; C9803; U0003